=== PATIENT | male | born 1970 | race Caucasian/White ===

== ENCOUNTER 2017-06-20 07:44 | Emergency (ER) | payer OTHER ==
[2017-06-20 08:04] VITALS: BMI 28.3
[2017-06-20 08:13] VITALS: RESP 16
[2017-06-20 08:29] LABS: BASO # 0.1 K/uL (0.0-0.2); BASO % 1.5 % (0.0-2.0); EOS # 0.1 K/uL (0.0-0.7); EOS % 1.7 % (0.0-4.0); HEMOGLOBIN 14.3 g/dL (12.0-18.0); LYMPH # 3.3 K/uL (1.0-4.3); LYMPH % 45.3 % (20.0-40.0); MEAN CELL VOLUME 88.6 fL (80.0-94.0); MEAN CORPUSCULAR HEMOGLOBIN 30.6 pg (27.0-31.0); MEAN CORPUSCULAR HGB CONC 34.6 g/dL (33.0-37.0); MEAN PLATELET VOLUME 7.6 fL (7.2-11.7); MONO # 0.4 K/uL (0.0-0.8); MONO % 5.3 % (0.0-10.0); NEUT # 3.4 K/uL (1.8-7.0); NEUT % 46.2 % (50.0-75.0); NRBC % 0.1 % (0.0-2.0); RBC 4.66 Mil/uL (4.40-5.90); RED CELL DISTRIBUTION WIDTH 15.3 % (11.5-14.5); WHITE BLOOD COUNT 7.3 K/uL (4.8-10.8)
[2017-06-20 08:34] LABS: PROTHROMBIN TIME 10.9 SECONDS (9.7-12.2)
[2017-06-20 08:36] VITALS: O2SAT 96
[2017-06-20 08:41] LABS: ALB/GLOB RATIO 1.3 (1.0-2.1); ALBUMIN 5.1 g/dL (3.5-5.0); ALT/SGPT 86 U/L (21-72); AST/SGOT 105 U/L (17-59); BLOOD UREA NITROGEN 7 mg/dL (9-20); CALCIUM 9.6 mg/dl (8.6-10.4); GFR AFRICAN-AMERICAN > 60; GFR NON-AFRICAN AMERICAN > 60; LIPASE 263 U/L (23-300)
[2017-06-20 08:51] LABS: CK-MB 0.23 ng/mL (0.0-3.38)
--- NOTE | 2017-06-20 09:53 | C.PDOC ---
History Of Present Illness 46-year-old male, presents to the emergency department with complaints of left sided chest pain that started at 06:00 this morning. Chest pain is described as a pressure like sensation that lasted 2-3 minutes, and then resolved. Patient reports he has been binge drinking beer x5 days. and last drink was this morning , prior to arrival. No abdominal pain, nausea/vomiting/diarrhea, cough or fever. Time Seen by Provider: 06/20/17 07:53 Chief Complaint (Nursing): Chest Pain History Per: Patient History/Exam Limitations: no limitations Past Medical History Reviewed: Historical Data, Nursing Documentation, Vital Signs Vital Signs: Last Vital Signs Temp 98.2 F 06/20/17 10:07 Pulse 105 H 06/20/17 10:07 Resp 16 06/20/17 10:07 BP 154/104 H 06/20/17 10:07 Pulse Ox 96 06/20/17 10:07 Family History: States: No Known Family Hx - Social History Hx Tobacco Use: No Hx Alcohol Use: Yes Hx Substance Use: No - Immunization History Hx Tetanus Toxoid Vaccination: No Hx Influenza Vaccination: No Hx Pneumococcal Vaccination: No Review Of Systems Constitutional: Negative for: Fever Cardiovascular: Positive for: Chest Pain. Negative for: Palpitations, Light Headedness Respiratory: Negative for: Shortness of Breath Gastrointestinal: Negative for: Nausea, Vomiting, Abdominal Pain Musculoskeletal: Negative for: Back Pain Neurological: Negative for: Headache, Dizziness Physical Exam - Physical Exam Appears: Non-toxic, No Acute Distress, Other (anxious) Skin: Normal Color, Warm, Dry, No Rash Head: Normacephalic Eye(s): bilateral: PERRL Neck: Normal ROM Chest: Symmetrical Cardiovascular: Rhythm Regular (Tachycardic), No Murmur Respiratory: Normal Breath Sounds, No Accessory Muscle Use Gastrointestinal/Abdominal: Soft, No Tenderness Extremity: Tenderness, No Deformity, No Swelling Neurological/Psych: Oriented x3, Normal Speech ED Course And Treatment - Laboratory Results Result Diagrams: 06/20/17 08:23 06/20/17 08:23 ECG: Interpreted By Me, Viewed By Me ECG Rhythm: Sinus Tachycardia ECG Interpretation: No Acute Changes Rate From EC O2 Sat by Pulse Oximetry: 96 (RA) Pulse Ox Interpretation: Normal Progress Note: EKG and bloodwork ordered and reviewed. Disposition Counseled Patient/Family Regarding: Studies Performed, Diagnosis, Need For Followup, Rx Given - Disposition Referrals: [facility] [Outside] Disposition: AGAINST MEDICAL ADVICE Disposition Time: 09:55 Condition: STABLE Additional Instructions: FOLLOW UP IN THE MEDICAL CLINIC IN 1-2 DAYS RETURN TO EMERGENCY ROOM IF SYMPTOMS WORSEN SEGUIMIENTO EN LA CLNICA MDICA EN 1-2 SOTO REGRESE AL CARLOZ DE EMERGENCIA SI LOS SNTOMAS EMPEORAN Instructions: Chest Pain, Leaving Against Medical Advice Forms: [employer] (Mohawk), (AMA) Informed Refusal Print Language: INDONESIAN - Clinical Impression Clinical Impression: Chest pain, Left against medical advice, Hypertension - Scribe Statement The provider has reviewed the documentation as recorded by the Scribe (Cecilio Crowder) All medical record entries made by the Scribe were at my direction and personally dictated by me. I have reviewed the chart and agree that the record accurately reflects my personal performance of the history, physical exam, medical decision making, and the department course for this patient. I have also personally directed, reviewed, and agree with the discharge instructions and disposition.
[2017-06-20 10:08] VITALS: BP 154/104; PULSE 105; TEMP 98.2
--- NOTE | 2017-06-22 11:00 | CARD ---
APPROVED REPORT EKG Measurement Heart [id number] <Conclusion> Sinus tachycardia Otherwise normal ECG
== END 2017-06-20 10:08 | disposition left against medical advice (07) ==
LOC: C.ER 07:44
DX: R07.9 Chest pain, unspecified (principal); I10 Essential (primary) hypertension

== ENCOUNTER → 2017-08-13 17:31 | Emergency (ER) | payer OTHER ==
[2017-08-13 17:31] VITALS: BMI 28.3
== END | disposition left against medical advice (07) ==
LOC: C.ER 17:31
DX: Z02.89 Encounter for other administrative examinations (principal); R07.9 Chest pain, unspecified

== ENCOUNTER 2017-10-22 14:56 | Emergency (ER) | payer SELFPAY ==
[2017-10-22 14:57] VITALS: BMI 28.3
== END 2017-10-22 15:31 | disposition left against medical advice (07) ==
LOC: C.ER 14:56
DX: Z02.89 Encounter for other administrative examinations (principal)

== ENCOUNTER 2018-01-15 20:28 | Emergency (ER) | payer SELFPAY ==
[2018-01-15 20:28] VITALS: BMI 28.9
[2018-01-15 20:51] VITALS: PULSE 95
[2018-01-15 21:39] VITALS: BP 155/92; RESP 18; TEMP 98.6; O2SAT 97
--- NOTE | 2018-01-16 03:04 | C.PDOC ---
History Of Present Illness 47 year old male presents to the ER with for ETOH detox. When patient's left, he denies wanting detox and wishes to be discharged. Patient admits to drinking tonight and denies any complaints. Chief Complaint (Nursing): Substance Abuse History Per: Patient History/Exam Limitations: no limitations Onset/Duration Of Symptoms: Hrs Current Symptoms Are (Timing): Still Present Suicide/Self Injury Attempted (Context): None Modifying Factor(s): Alcohol Associated Symptoms: denies: Depression, Suicidal Thoughts Involuntary Hold By: None Recent travel outside of the [place]: No Past Medical History Reviewed: Historical Data, Nursing Documentation, Vital Signs Vital Signs: Last Vital Signs Temp 98.6 F 01/15/18 21:37 Pulse 95 H 01/15/18 21:37 Resp 18 01/15/18 21:37 BP 155/92 H 01/15/18 21:37 Pulse Ox 97 01/15/18 21:37 Family History: States: Unknown Family Hx - Social History Hx Tobacco Use: No Hx Alcohol Use: Yes Hx Substance Use: No - Immunization History Hx Tetanus Toxoid Vaccination: No Hx Influenza Vaccination: No Hx Pneumococcal Vaccination: No Review Of Systems Constitutional: Negative for: Fever, Chills Cardiovascular: Negative for: Chest Pain, Palpitations Respiratory: Negative for: Cough, Shortness of Breath Gastrointestinal: Negative for: Nausea, Vomiting Neurological: Negative for: Weakness, Numbness Physical Exam - Physical Exam Appears: Non-toxic Skin: Normal Color, Warm, Dry Head: Atraumatic, Normacephalic Eye(s): bilateral: Normal Inspection Oral Mucosa: Moist Neck: Normal, Supple Chest: Symmetrical, No Tenderness Cardiovascular: Rhythm Regular Respiratory: Normal Breath Sounds, No Rales, No Rhonchi, No Wheezing Gastrointestinal/Abdominal: Soft, No Tenderness Extremity: Normal ROM (x4) Neurological/Psych: Oriented x3, Normal Speech ED Course And Treatment O2 Sat by Pulse Oximetry: 97 (Room air) Pulse Ox Interpretation: Normal Disposition - Disposition Referrals: Alcoholics Anonymous [Outside] [facility] [Outside] [facility] [Outside] Disposition: HOME/ ROUTINE Disposition Time: 21:20 Condition: GOOD Additional Instructions: NIRAJ HANKINS, thank you for letting us take care of you today. The emergency medical care you received today was directed at your acute symptoms. If you were prescribed any medication, please fill it and take as directed. It may take several days for your symptoms to resolve. Return to the Emergency Department if your symptoms worsen, do not improve, or if you have any other problems. Please contact your doctor or call one of the physicians/clinics you have been referred to that are listed on the Patient Visit Information form that is included in your discharge packet. Bring any paperwork you were given at discharge with you along with any medications you are taking to your follow up visit. Our treatment cannot replace ongoing medical care by a primary care provider outside of the emergency department. Thank you for allowing the [facility] team to be part of your care today. Follow up with your primary care doctor or our clinic this week for outpatient care. NIRAJ HANKINS, flores por dejarnos cuidar de ti jourdan. La atencin mdica de emergencia que recibi hoy se dirigi a joselyn sntomas agudos. Si le recetaron alg n medicamento, llnelo y tmelo segn las indicaciones. Los sntomas pueden tardar varios sanchez en resolverse. Regrese al Departamento de Emergencias si joselyn sntomas empeoran, no mejoran o si tiene otros problemas. Comunquese con martel mdico o llame a pavel de los mdicos / clnicas a los que sawyer sido referido que figuran en el formulario de Informacin de visita al paciente que se incluye en martel paquete de bette. Lleve con usted a martel consulta de seguimiento toda la documentacin que recibi del bette junto con los medicamentos que est tomando. Nuestro tratamiento no puede reemplazar la atencin mdica continua por parte de un proveedor de atencin primaria fuera del departamento de emergencias. Flores por permitir que el equipo de [facility] sea parte de martel atencin hoy. Pedro un seguimiento con martel mdico de atencin primaria o nuestra clnica esta semana para recibir atencin ambulatoria. Instructions: Alcohol Use - When Is Drinking a Problem? Forms: Gen Discharge Inst Qatari, [facility] (Qatari) Print Language: SLOVENIAN - Clinical Impression Clinical Impression: Alcohol use - Scribe Statement The provider has reviewed the documentation as recorded by the Scribe Nathan Durant All medical record entries made by the Scribe were at my direction and personally dictated by me. I have reviewed the chart and agree that the record accurately reflects my personal performance of the history, physical exam, medical decision making, and the department course for this patient. I have also personally directed, reviewed, and agree with the discharge instructions and disposition.
== END 2018-01-15 21:44 | disposition home or self-care (01) ==
LOC: C.ER 20:28
DX: Z72.89 Other problems related to lifestyle (principal)

== ENCOUNTER 2018-03-15 23:43 | Emergency (ER) | payer SELFPAY ==
[2018-03-15 23:44] VITALS: BMI 28.9
--- NOTE | 2018-03-15 23:59 | C.PDOC ---
History Of Present Illness 47 year old male is brought to the ED by EMS for alcohol intoxication. Patient admits to drinking alcohol today. Patient denies SI/HI, hallucinations, CP, SOB, injury, fall, trauma. Time Seen by Provider: 03/15/18 23:58 Chief Complaint (Nursing): Substance Abuse History Per: Patient, EMS History/Exam Limitations: intoxication Onset/Duration Of Symptoms: Hrs Current Symptoms Are (Timing): Still Present Suicide/Self Injury Attempted (Context): None Modifying Factor(s): Alcohol Associated Symptoms: denies: Depression, Suicidal Thoughts, Suicidal Plan Recent travel outside of the [place]: No Additional History Per: Patient, EMS Past Medical History Reviewed: Historical Data, Nursing Documentation, Vital Signs Vital Signs: Last Vital Signs Temp 97.6 F 03/15/18 23:46 Pulse 94 H 03/15/18 23:46 Resp 20 03/15/18 23:46 BP 134/92 H 03/15/18 23:46 Pulse Ox 100 03/15/18 23:46 - Medical History PMH: No Chronic Diseases Surgical History: No Surg Hx Family History: States: Unknown Family Hx - Social History Hx Tobacco Use: No Hx Alcohol Use: Yes Hx Substance Use: No - Immunization History Hx Tetanus Toxoid Vaccination: No Hx Influenza Vaccination: No Hx Pneumococcal Vaccination: No Review Of Systems Constitutional: Negative for: Fever, Chills Cardiovascular: Negative for: Chest Pain Respiratory: Negative for: Cough, Shortness of Breath Gastrointestinal: Negative for: Nausea, Vomiting, Abdominal Pain Skin: Negative for: Rash Psych: Negative for: Depression, Suicidal ideation Physical Exam - Physical Exam Appears: Non-toxic, No Acute Distress Skin: Warm, Dry Head: Normacephalic Eye(s): bilateral: Normal Inspection Oral Mucosa: Moist Neck: Supple Chest: Symmetrical Cardiovascular: Rhythm Regular Respiratory: No Rales, No Rhonchi, No Wheezing Gastrointestinal/Abdominal: Soft, No Tenderness, No Guarding, No Rebound Extremity: Bilateral: Atraumatic, Normal Color And Temperature, Normal ROM Neurological/Psych: Oriented x3, Normal Speech, Normal Cognition Gait: Steady ED Course And Treatment O2 Sat by Pulse Oximetry: 100 (ON RA) Pulse Ox Interpretation: Normal Reevaluation Time: 03:12 Reassessment Condition: Improved Disposition Counseled Patient/Family Regarding: Studies Performed, Diagnosis, Need For Followup - Disposition Referrals: [facility] [Outside] Disposition: HOME/ ROUTINE Disposition Time: 23:58 Condition: FAIR Instructions: Alcohol Abuse and Alcoholism (DC) Forms: [facility] (Indian) - Clinical Impression Clinical Impression: Alcohol intoxication - Scribe Statement The provider has reviewed the documentation as recorded by the Scribe Virgilio Strong All medical record entries made by the Scribe were at my direction and personally dictated by me. I have reviewed the chart and agree that the record accurately reflects my personal performance of the history, physical exam, medical decision making, and the department course for this patient. I have also personally directed, reviewed, and agree with the discharge instructions and disposition.
[2018-03-16 03:20] VITALS: BP 112/79; PULSE 90; RESP 18; TEMP 97.6; O2SAT 99
== END 2018-03-16 03:27 | disposition home or self-care (01) ==
LOC: C.ER 23:43
DX: F10.129 Alcohol abuse with intoxication, unspecified (principal)